=== PATIENT | female | born 1940 | race Caucasian/White ===

== ENCOUNTER 2017-09-10 00:08 | Emergency (ER) | payer MEDICARE ==
[~2017-09-10] VITALS: Ht 165.1 cm; Wt 87.9 kg
[~2017-09-10 00:08] MED LIST: ATEN-102 PO; CLON.1 PO; HYDR12.56 PO; [UNRECOGNIZED DRUG - CODE] PO
[2017-09-10 00:16] VITALS: BP 206/92; PULSE 120; RESP 14; TEMP 98.3; O2SAT 95
[2017-09-10] MEDS ORDERED: HYDR25TA5 PO (00:43)
[2017-09-10] MEDS ORDERED: VALS1TAB70 PO (00:43)
[2017-09-10] MEDS ORDERED: AMLO5TAB2 PO (00:43)
[2017-09-10] MEDS ORDERED: CLON0.1T PO (00:43)
[2017-09-10 00:47] VITALS: BP 212/102; PULSE 108; RESP 18; O2SAT 98
[2017-09-10] MEDS ORDERED: SODIUM CHLORIDE 0.9% FLUSH 10 ML FLUSH IVF PRN (01:00)
[2017-09-10] MEDS ORDERED: NITROGLYCERIN 2% OINT 1 GM PACKET TOPICAL ONE (01:00)
[2017-09-10] MEDS ORDERED: FUROSEMIDE 40 MG/4 ML VIAL IV PUSH ONE (01:00)
[2017-09-10 01:21] LABS: AUTOMATED NEUTROPHIL # 8.2 TH/MM3 (1.8-7.7); BASOPHIL # 0.1 TH/MM3 (0-0.2); BASOPHIL % 1.2 % (0.0-2.0); EOSINOPHIL # 0.1 TH/MM3 (0-0.4); EOSINOPHIL % 1.2 % (0.0-4.0); HEMATOCRIT 41.3 % (35.0-46.0); HEMOGLOBIN 14.1 GM/DL (11.6-15.3); LYMPH % 18.3 % (9.0-44.0); LYMPHOCYTE # 1.9 TH/MM3 (1.0-4.8); MEAN CELL VOLUME 85.9 FL (80.0-100.0); MEAN CORPUSCULAR HEMOGLOBIN 29.3 PG (27.0-34.0); MEAN CORPUSCULAR HGB CONC 34.1 % (32.0-36.0); MEAN PLATELET VOLUME 8.3 FL (7.0-11.0); MONOCYTE # 0.3 TH/MM3 (0-0.9); NEUT % 76.3 % (16.0-70.0); PLATELET COUNT 226 TH/MM3 (150-450); RED BLOOD COUNT 4.81 MIL/MM3 (4.00-5.30); RED CELL DISTRIBUTION WIDTH 12.3 % (11.6-17.2); WHITE BLOOD COUNT 10.6 TH/MM3 (4.0-11.0)
[2017-09-10 01:22] VITALS: BP 210/88
[2017-09-10 01:43] LABS: BLOOD UREA NITROGEN 12 MG/DL (7-18); CHLORIDE 103 MEQ/L (98-107); CREATININE 0.69 MG/DL (0.50-1.00); GLOMERULAR FILTRATION RATE 83 ML/MIN (>89); GLUCOSE,RANDOM 180 MG/DL (74-106); SODIUM (NA) 137 MEQ/L (136-145); TROPONIN I LESS THAN 0.02 NG/ML (0.02-0.05)
--- NOTE | 2017-09-10 01:46 | RADRPT ---
EXAM DATE: 09/10/2017 1:38 AM EDT AGE/SEX: 77 years / Female INDICATIONS: Short of breath. CLINICAL DATA: This is the patient's initial encounter. Patient reports that signs and symptoms have been present for 1 day and indicates a pain score of 3/10. MEDICAL/SURGICAL HISTORY: None. None. COMPARISON: No prior exams available for comparison. FINDINGS: The lungs are clear without infiltrate, nodule, or mass. There is no appreciable pleural effusion for technique. Heart and mediastinum are unremarkable. There are degenerative changes and o steopenia within the thoracic spine. CONCLUSION: No acute cardiopulmonary disease. Electronically signed by: Dylon Zpaien MD 09/10/2017 1:45 AM EDT
[2017-09-10 01:57] VITALS: BP 210/89; PULSE 106
--- NOTE | 2017-09-10 02:18 | PD ---
HPI . Weeping legs Chief Complaint: Edema Time Seen by Provider: 00:46 Travel History International Travel<30 days: No Contact w/Intl Traveler<30days: No Traveled to known affect area: No History of Present Illness HPI This patient presents with chief complaint of weeping from her right lower extremity. She noticed this just prior to presentation. She reports chronic peripheral edema which is exacerbated by being up on her feet all day and which is improved by putting her feet up at night. She states that her legs are normal in the morning but then are swollen at nighttime. She states that she had just been sitting on a work on her with her feet up watching TV for couple of hours when she noticed a wet spot on the chair. She also reports some dyspnea on exertion. She has no chest pain. PFSH Past Medical History Arthritis: Yes Asthma: Yes Diabetes: Yes Patient Takes Glucophage: No Hypertension: Yes Pneumonia: Yes Thyroid Disease: Yes Tetanus Vaccination: Unknown Influenza Vaccination: No ?: Not Menopausal: Yes : 2 Para: 2 Past Surgical History Cholecystectomy: Yes Social History Alcohol Use: No Tobacco Use: No Substance Use: No Allergies-Medications (Allergen,Severity, Reaction): Coded Allergies: Sulfa (Sulfonamide Antibiotics) (Unverified Allergy, Severe, Rash, 09/10/17 ) aspirin (Unverified Allergy, Severe, Rash, 09/10/17) banana (Verified Allergy, Severe, Shortness of Breath, 09/10/17) "I COULDN'T BREATHE" diatrizoate meglumine (Unverified Allergy, Severe, Rash, 09/10/17) gadobenic acid (Unverified Allergy, Severe, Rash, 09/10/17) gadodiamide (Unverified Allergy, Severe, Rash, 09/10/17) gadoteridol (Unverified Allergy, Severe, Rash, 09/10/17) iodixanol (Unverified Allergy, Severe, Rash, 09/10/17) iohexol (Unverified Allergy, Severe, Rash, 09/10/17) peanut (Verified Allergy, Severe, Swelling, 09/10/17) "THROAT SWELLS UP" Uncoded Allergies: COUGH SYRUP (Allergy, Severe, Anaphylaxis, 05/27/14) PAIN MEDICATIONS (Allergy, Severe, Anaphylaxis, 05/27/14) Reported Meds & Prescriptions Reported Meds & Active Scripts Active Reported Valsartan 320 Mg Tab 320 Mg PO DAILY Clonidine (Clonidine HCl) 0.1 Mg Tab 0.1 Mg PO BID Hydrochlorothiazide 25 Mg Tab 25 Mg PO DAILY Amlodipine (Amlodipine Besylate) 5 Mg Tab 5 Mg PO DAILY Review of Systems Except as stated in HPI: all other systems reviewed are Neg Physical Exam Narrative GENERAL: Awake and alert and in no acute distress. SKIN: warm/dry. Serous fluid weeping from her right lower extremity. HEAD: Normocephalic. EYES: Pupils equal and round. No scleral icterus. No injection or drainage. ENT: No nasal bleeding or discharge. Mucous membranes pink and moist. NECK: Trachea midline. Full range of motion without pain.. CARDIOVASCULAR: Regular rate and rhythm. Heart sounds are normal. RESPIRATORY: No accessory muscle use. Clear to auscultation. Breath sounds equal bilaterally. MUSCULOSKELETAL: No obvious deformities. 4+ pretibial pitting edema. NEUROLOGICAL: Awake and alert. No obvious cranial nerve deficits. Motor grossly within normal limits. Normal speech. PSYCHIATRIC: Appropriate mood and affect; insight and judgment normal. Data Data Last Documented VS Vital Signs Date Time Temp Pulse Resp B/P (MAP) Pulse Ox O2 Delivery O2 Flow Rate FiO2 09/10/17 01:57 106 210/89 (129) 09/10/17 00:47 18 98 Room Air 09/10/17 00:16 98.3 Orders Orders Complete Blood Count With Diff (09/10/17 00:47) Basic Metabolic Panel (Bmp) (09/10/17 00:47) B-Type Natriuretic Peptide (09/10/17 00:47) Troponin I (09/10/17 00:47) Iv Access Insert/Monitor (09/10/17 00:47) Electrocardiogram (09/10/17 00:47) Ecg Monitoring (09/10/17 00:47) Oximetry (09/10/17 00:47) Chest, Pa & Lat (09/10/17 00:47) Sodium Chloride 0.9% Flush (Ns Flush) (09/10/17 01:00) Furosemide Inj (Lasix Inj) (09/10/17 01:00) Nitroglycerin 2% Oint (Nitroglycerin 2% (09/10/17 01:00) Labs Laboratory Tests Test 09/10/17 01:10 White Blood Count 10.6 TH/MM3 Red Blood Count 4.81 MIL/MM3 Hemoglobin 14.1 GM/DL Hematocrit 41.3 % Mean Corpuscular Volume 85.9 FL Mean Corpuscular Hemoglobin 29.3 PG Mean Corpuscular Hemoglobin Concent 34.1 % Red Cell Distribution Width 12.3 % Platelet Count 226 TH/MM3 Mean Platelet Volume 8.3 FL Neutrophils (%) (Auto) 76.3 % Lymphocytes (%) (Auto) 18.3 % Monocytes (%) (Auto) 3.0 % Eosinophils (%) (Auto) 1.2 % Basophils (%) (Auto) 1.2 % Neutrophils # (Auto) 8.2 TH/MM3 Lymphocytes # (Auto) 1.9 TH/MM3 Monocytes # (Auto) 0.3 TH/MM3 Eosinophils # (Auto) 0.1 TH/MM3 Basophils # (Auto) 0.1 TH/MM3 CBC Comment DIFF FINAL Differential Comment Blood Urea Nitrogen 12 MG/DL Creatinine 0.69 MG/DL Random Glucose 180 MG/DL Calcium Level 10.0 MG/DL Sodium Level 137 MEQ/L Potassium Level 2.9 MEQ/L Chloride Level 103 MEQ/L Carbon Dioxide Level 27.0 MEQ/L Anion Gap 7 MEQ/L Estimat Glomerular Filtration Rate 83 ML/MIN Troponin I LESS THAN 0.02 NG/ML B-Type Natriuretic Peptide 26 PG/ML MDM Medical Decision Making Medical Screen Exam Complete: Yes Emergency Medical Condition: Yes Interpretation(s) EKG shows a sinus rhythm with a rate of 105. No acute ischemic changes. Differential Diagnosis Differential diagnosis includes but is not limited to pulmonary edema, peripheral edema, hypoalbuminemia Narrative Course This patient presents with chief complaint of swelling of her legs, weeping from her right leg and shortness of breath. CBC & BMP Diagram 09/10/17 01:10 Calcium Level 10.0 Potassium will be replaced orally. trop < 0.02 BNP 26 Last Impressions Chest X-Ray 09/10/17 0047 Signed Impressions: CONCLUSION: No acute cardiopulmonary disease. This patient is stable for further evaluation and treatment as an outpatient. She has [facility]. She should not have any trouble being seen tomorrow in follow-up. Diagnosis Primary Impression: Peripheral edema Additional Impression: Hypokalemia Referrals: Momo Turner MD 1 day Patient Instructions: General Instructions, Leg Edema (ED) Disposition: 01 DISCHARGE HOME Condition: Stable Sloane Trotter MD September 10, 2017 02:18
[2017-09-10] MEDS ORDERED: POTASSIUM CHLORIDE 20 MEQ CONTROLLED RELEASE TAB PO ONE (02:45)
[2017-09-10 02:58] VITALS: BP 172/84; PULSE 90; RESP 18; O2SAT 98
--- NOTE | 2017-09-10 14:04 | EKG ---
Date Performed: 09/10/2017 Time Performed: 01:00:56 PTAGE: 77 years EKG: SINUS TACHYCARDIA POSSIBLE LEFT ATRIAL ENLARGEMENT LOW QRS VOLTAGE IN PRECORDIAL LEADS NONS PECIFIC ST & T-WAVE ABNORMALITY ABNORMAL RHYTHM ECG PREVIOUS TRACING : 05/27/2014 02.32 DOCTOR: Devin Khalil Interpretating Date/Time 09/10/2017 14:02:57
== END 2017-09-10 03:06 | disposition home or self-care (01) ==
LOC: PHED 00:08
DX: R60.0 Localized edema (principal); E87.6 Hypokalemia; R00.0 Tachycardia, unspecified; R94.31 Abnormal electrocardiogram [ECG] [EKG]; M19.90 Unspecified osteoarthritis, unspecified site; J45.909 Unspecified asthma, uncomplicated; E11.9 Type 2 diabetes mellitus without complications; I10 Essential (primary) hypertension; E07.9 Disorder of thyroid, unspecified
CPT/HCPCS: 71046; 80048; 83880; 84484; 85025; 93005; 96374; 99285; J1940